=== PATIENT | female | born 1990 | race Two or more races ===

== ENCOUNTER 2019-05-04 22:58 | Emergency (ER) | payer OTHER ==
[~2019-05-04] VITALS: Ht 162.6 cm; Wt 61.2 kg
[2019-05-04] MEDS ORDERED: SYNTHROID75 MCG (23:18)
[2019-05-05] MEDS ORDERED: TUSNEL LIQUID178 ML PO (01:10)
[2019-05-05] MEDS ORDERED: OSEL75CA PO (01:10)
== END 2019-05-05 01:07 | disposition home or self-care (01) ==
LOC: ER 22:58
DX: J11.1 Influenza due to unidentified influenza virus with other respiratory manifestations (principal)